=== PATIENT | female | born 1945 | race Caucasian/White ===

== ENCOUNTER 2016-12-08 15:30 | Inpatient (IN) | payer OTHER ==
[~2016-12-08] VITALS: Ht 162.6 cm; Wt 107.3 kg
[~2016-12-08 15:30] MED LIST: ALLOPURINOL300 MG PO; ATORVASTATIN CA10 MG PO; LEVAQUIN750 MG PO; LEVOTHYROXINE137 MCG PO; PREDNISONE50 MG PO; PROAIR HFA8.5 GM IH; ZITHROMAX TRI-500 MG PO
[2016-12-08] MEDS ORDERED: ADVAIR 250/501 DISK IH (15:55)
[2016-12-08 15:57] VITALS: BP 143/86
[2016-12-08 16:51] LABS: EOSINOPHIL (%) 4.3 % (0-5); EOSINOPHIL COUNT 0.3 K/uL (0-0.3); HEMATOCRIT 36.8 % (36.0-46.0); IMMATURE GRANULOCYTE (%) 0.9 % (0.0-0.7); IMMATURE GRANULOCYTE COUNT 0.1 K/uL; INSTRUMENT ABS NEUTROPHIL CT 4.8 K/uL; MCH 28.9 PG (29.0-34.0); MCHC 32.9 G/DL (30.0-36.0); MEAN PLAT.VOLUME 8.9 uM^3 (9.5-12.4); MONOCYTE (%) 7.5 % (3-12); MONOCYTE COUNT 0.6 K/uL (0-0.8); NEUTROPHIL (%) 61.8 % (45-76); NEUTROPHIL COUNT 4.8 K/uL (1.8-6.4); RBC DIS.WIDTH-CV 13.5 % (11.8-14.6); RBC DIS.WIDTH-SD 43.7 % (39-53); RED BLOOD COUNT 4.18 M/uL (3.80-5.20); WHITE BLOOD COUNT 7.8 K/uL (4.1-10.2)
[2016-12-08 17:03] LABS: ANION GAP 10 MEQ/L (2-14); CHLORIDE 106 MEQ/L (99-109); POTASSIUM 3.8 MEQ/L (3.7-5.4); SAMPLE HEMOLYSIS CHECK 0; SAMPLE ICTERIC CHECK 0; SAMPLE LIPEMIA CHECK 0; SODIUM 141 MEQ/L (136-147)
[2016-12-08 17:08] LABS: GFR ESTIMATE (CALCULATED) > 59 mL/min/; GLUCOSE 87 mg/dL (70-99); UREA NITROGEN (BUN) 8 mg/dL (9-23)
[2016-12-08 17:27] LABS: PLATELET COUNT 404 K/uL (156-360)
[2016-12-08 17:49] LABS: C-REACTIVE PROTEIN 60.7 MG/L (0-10)
[2016-12-08 18:03] LABS: ERTH.SED.RATE 51 MM/HR (0-30)
[2016-12-08 21:00] VITALS: BP 138/73
[2016-12-08 21:03] VITALS: BP 138/73
[2016-12-08 23:33] VITALS: BP 117/60
[2016-12-09 04:00] VITALS: BP 123/68
[2016-12-09 08:33] VITALS: BP 121/70
[2016-12-09 16:21] VITALS: BP 133/60
[2016-12-09 19:49] VITALS: BP 117/58
[2016-12-09 23:38] VITALS: BP 119/59
[2016-12-10 08:27] VITALS: BP 133/73
[2016-12-10 16:00] VITALS: BP 107/47
[2016-12-10 23:31] VITALS: BP 134/65
[2016-12-11 08:17] VITALS: BP 121/63
[2016-12-11 15:38] VITALS: BP 131/76
[2016-12-11 23:33] VITALS: BP 120/57
[2016-12-12 08:30] VITALS: BP 142/60
[2016-12-12 16:32] VITALS: BP 169/79
[2016-12-12 23:45] VITALS: BP 145/80
[2016-12-13 08:16] VITALS: BP 132/61
[2016-12-13 15:55] VITALS: BP 173/84
[2016-12-14 00:04] VITALS: BP 155/75
[2016-12-14 07:43] VITALS: BP 130/70
[2016-12-14] MEDS ORDERED: NAFCILLIN SODIUM2 GM IM (08:44)
[2016-12-14] MEDS ORDERED: NAFCILLIN SODIUM2 GM IV (09:59)
[2016-12-14 11:23] VITALS: BP 132/78
== END 2016-12-14 15:39 | disposition home health service (06) | DRG 920 ==
LOC: SDC 15:30 → 3EAST 18:46 → 2SOUTH 18:46 → 3EAST 20:32
PROVIDERS: Neurological Surgery
PROC: 0H96XZZ Drainage of Back Skin, External Approach (ICD-10-PCS; principal; 2016-12-09)
PROC: 0HD6XZZ Extraction of Back Skin, External Approach (ICD-10-PCS; 2016-12-11)
DX: T81.31XA Disruption of external operation (surgical) wound, not elsewhere classified, initial encounter (principal); T81.4XXA Infection following a procedure, initial encounter; L02.212 Cutaneous abscess of back [any part, except buttock and flank]; L03.312 Cellulitis of back [any part except buttock and flank]; B95.61 Methicillin susceptible Staphylococcus aureus infection as the cause of diseases classified elsewhere; Y83.8 Other surgical procedures as the cause of abnormal reaction of the patient, or of later complication, without mention of misadventure at the time of the procedure; E66.01 Morbid (severe) obesity due to excess calories; Z68.41 Body mass index [BMI] 40.0-44.9, adult; I10 Essential (primary) hypertension; E78.5 Hyperlipidemia, unspecified; J45.909 Unspecified asthma, uncomplicated; E03.9 Hypothyroidism, unspecified; M10.9 Gout, unspecified
CPT/HCPCS: 76937; 80048; 85025; 85651; 86140; 87070; 87075; 87076; 87077; 87147; 87186; 87205; 94640; 94640 76; 94760; 99202; J0131; J0330; J1580; J1650; J1885; J2270; J2405; J2765; J3010; J3370; J3480; J7050; S0032

== ENCOUNTER 2017-11-07 19:58 | Emergency (ER) | payer OTHER ==
[~2017-11-07] VITALS: Ht 162.6 cm; Wt 115.3 kg
[~2017-11-07 19:58] MED LIST changes: +ADVAIR 250/501 DISK IH; +ALLEGRA ALLERGY60 MG PO; +ASPIRIN325 MG PO; +NAFCILLIN SODIUM2 GM IM; +NAFCILLIN SODIUM2 GM IV
[2017-11-07 20:25] LABS: HEMATOCRIT 44.2 % (36.0-46.0); MCH 30.1 PG (29.0-34.0); MCHC 33.9 G/DL (30.0-36.0); MCV 88.8 FL (83-99); PLATELET COUNT 264 K/uL (156-360); RBC DIS.WIDTH-CV 14.3 % (11.8-14.6); RBC DIS.WIDTH-SD 46.4 % (39-53); RED BLOOD COUNT 4.98 M/uL (3.80-5.20); WHITE BLOOD COUNT 9.5 K/uL (4.1-10.2)
[2017-11-07 20:32] LABS: ALBUMIN 4.1 g/dL (3.2-4.8); CHLORIDE 105 mEq/L (99-109)
[2017-11-07 20:33] LABS: SODIUM 139 mEq/L (136-147)
[2017-11-07 20:35] LABS: GLUCOSE 104 mg/dL (70-99); TOTAL PROTEIN 6.7 g/dL (6.4-8.3)
[2017-11-07 20:37] LABS: TOTAL BILIRUBIN 0.8 mg/dL (0.0-1.0)
[2017-11-07 20:38] LABS: ALKALINE PHOSPHATASE 75 IU/L (3-129); GFR ESTIMATE (CALCULATED) 58 mL/min/
[2017-11-07 20:40] LABS: AST (GOT) 17 IU/L (2-34); UREA NITROGEN (BUN) 20 mg/dL (9-23)
[2017-11-07 20:41] LABS: ALT (GPT) 16 IU/L (3-49)
[2017-11-08] MEDS ORDERED: AUGMENTIN875 MG PO (00:04)
[2017-11-08] MEDS ORDERED: ZOFRAN4 MG PO (00:04)
[2017-11-08 00:05] LABS: LIPASE 17 U/L (1.0-51.0)
[2017-11-08] MEDS ORDERED: ULTRAM50 MG PO (00:17)
[2017-11-08 00:24] LABS: APPEARANCE CLEAR ((CLEAR)); BILIRUBIN NEGATIVE; BLOOD NEGATIVE; COLOR YELLOW ((YELLOW)); GLUCOSE (STRIP) NEGATIVE; KETONES 5; LEUKOCYTES TRACE; NITRITE NEGATIVE; PROTEIN (STRIP) NEGATIVE; UROBILINOGEN 0.2 MG/DL (0.2-1.0)
[2017-11-08 00:28] LABS: BACTERIA RARE /HPF; EPITHELIAL CELLS 1+ /HPF; MUCUS TRACE /LPF; RED BLOOD CELLS 0-5 /HPF (0-5); UCUL ADDED? NO; WHITE BLOOD CELLS 0-5 /HPF (0-5)
[2017-11-08 00:31] VITALS: BP 141/68
[2017-11-08 00:35] LABS: SPECIFIC GRAVITY 1.058 (1.000-1.030)
== END 2017-11-08 00:32 | disposition home or self-care (01) ==
LOC: EME 19:58
PROVIDERS: Physician Assistant
DX: K80.20 Calculus of gallbladder without cholecystitis without obstruction (principal); R19.7 Diarrhea, unspecified; I10 Essential (primary) hypertension; E05.90 Thyrotoxicosis, unspecified without thyrotoxic crisis or storm; M10.9 Gout, unspecified; Z79.82 Long term (current) use of aspirin; Z88.5 Allergy status to narcotic agent; Z88.6 Allergy status to analgesic agent
CPT/HCPCS: 74177; 80053; 81003; 83690; 85027; 87502; J2405; J7030